=== PATIENT | male | born 1960 | race Hispanic/Latino ===

== ENCOUNTER 2017-11-15 11:36 | Inpatient (IN) | payer MEDICARE ==
[2017-11-15] MEDS ORDERED: SODIUM CHLORIDE FLUSH SYRINGE 10 ML IV PRN (11:54)
[2017-11-15] MEDS ORDERED: REQUIP PO PRN (13:32)
--- NOTE | 2017-11-15 13:32 | History and Physical Report ---
History of Present Illness Date of admission: 11/15/17 12:19 Chief complaint: I dont feel good, and I want to get off this stuff History of present illness: 57 YO Male with Nicotine Dependence, Chronic Lumbar Pain admitted directly to [facility]. Pt states that he is a chronic user of narcotics that were originally prescribed to him for back pain, as well as Benzodiazepines. Pt has experienced nausea, multiple episodes of vomiting, insomina, abdominal cramping, feeling agitated, restless, generalized body aches, muscle stiffness, and inability to concentrate over the past 3 days with worsening symptoms over the same time frame. Pt seen and evaluated upon arrival and found to have symptoms consistent with Benzodiazepine Withdrawl Syndrome, as well as Opiate Withdrawl Syndrome. Pt admitted [facility] for [facility]. Past History Past Medical History: other (Back Pain) Past Surgical History: Other (Back surgery) Social history: , smoking Family history: no significant family history (reviewed) Medications and Allergies Allergies Allergy/AdvReac Type Severity Reaction Status Date / Time asparagus AdvReac Unknown Unverified 11/15/17 14:12 Home Medications Medication Instructions Recorded Confirmed Last Taken Type No Known Home Medications [No 11/16/17 11/16/17 Unknown History Reported Home Medications] Active Meds: Active Medications Sodium Chloride (Sodium Chloride Flush Syringe 10 Ml) 10 ml IV BID COSMO Sodium Chloride (Sodium Chloride Flush Syringe 10 Ml) 10 ml IV PRN PRN PRN Reason: LINE FLUSH Review of Systems Constitutional: no weight loss, no weight gain, no fever, no chills Ears, nose, mouth and throat: no ear pain, no ear discharge, no tinnitis, no decreased hearing, no nose pain, no nasal congestion Cardiovascular: no chest pain, no orthopnea, no palpitations, no rapid/ irregular heart beat, no edema, no syncope Respiratory: no cough, no cough with sputum, no excessive sputum, no hemoptysis , no shortness of breath Gastrointestinal: nausea, vomiting, no constipation, no change in bowel habits, no hematemesis, no BRBPR, no melena, no hematochezia, no loss of appetite, no early satiety Genitourinary Male: no hematuria, no flank pain, no discharge, no urinary frequency, no urinary hesitancy, no nocturia, no incontinence Rectal: no pain, no incontinence, no bleeding, no itching, no hemorrhoids, no discharge Musculoskeletal: no neck pain, no shooting arm pain, no arm numbness/tingling, no low back pain, no shooting leg pain, no leg numbness/tingling Integumentary: no rash, no pruritis, no redness, no sores, no wounds Neurological: no transient paralysis, no paralysis, no weakness, no parathesias , no numbness, no tingling, no seizures, no syncope Psychiatric: anxiety, change in sleep habits, insomnia, change in appetite, depression, hopelessness, difficulties concentrating, irritability, no memory loss, no suicidal ideation, no disorientation, no hallucinations, no paranoia Endocrine: no cold intolerance, no heat intolerance, no polyphagia, no excessive thirst, no polydipsia, no polyuria, no nocturia, no excessive sweating Hematologic/Lymphatic: no easy bruising, no easy bleeding, no lymphadenopathy, no lymphedema Allergic/Immunologic: no urticaria, no allergic rhinitis, no persistent infections, no anaphylaxis, no angioedema Exam - Constitutional Vitals: Temp Pulse Resp BP Pulse Ox 98.3 F 64 18 123/57 99 11/15/17 12:47 11/15/17 12:47 11/15/17 12:47 11/15/17 12:47 11/15/17 12:47 General appearance: Present: mild distress, cachectic, disheveled - EENT Eyes: Present: miosis ENT: hearing intact, clear oral mucosa - Neck Neck: Present: supple, normal ROM - Respiratory Respiratory effort: normal Respiratory: bilateral: CTA - Cardiovascular Heart Sounds: Present: S1 & S2. Absent: rub, click - Extremities Extremities: pulses symmetrical, No edema Peripheral Pulses: within normal limits - Abdominal General gastrointestinal: Present: soft, non-tender, non-distended, normal bowel sounds Male genitourinary: Present: normal - Integumentary Integumentary: Present: clear, warm, dry - Musculoskeletal Musculoskeletal: gait normal, strength equal bilaterally - Psychiatric Psychiatric: appropriate mood/affect, intact judgment & insight - Neurologic Neurologic: CNII-XII intact, moves all extremities Results - Labs CBC & Chem 7: 11/15/17 18:01 11/15/17 18:01 Assessment and Plan - Patient Problems (1) Benzodiazepine withdrawal Current Visit: Yes Status: Acute Plan to address problem: Benzo Withdrawl Protocol: Librium taper, IVF resuscitation, therapy, anti emetic therapy, diet as tolerated, supportive care. (2) Opiate withdrawal Current Visit: Yes Status: Acute Plan to address problem: Opiate Withdrawl Protocol: IVF resuscitation, librium taper, anti emetic therapy , CBC,CMP, diet as tolerated, supportive care. (3) Nicotine dependence unspecified, with withdrawal Current Visit: Yes Status: Acute Qualifiers: Nicotine product type: cigarettes Qualified Code(s): F17.213 - Nicotine dependence, cigarettes, with withdrawal Plan to address problem: Smoking Cessation counseling, supportive care. (4) DVT prophylaxis Current Visit: Yes Status: Acute Plan to address problem: SCD to BLE while in bed.
[2017-11-15] MEDS ORDERED: ATIVAN IV ONE (13:50)
[2017-11-15] MEDS: LIBRIUM PO SCH ×2 (17:03→23:16)
[2017-11-15 17:47] LABS: Bilirubin,Urine NEG (Negative); Blood,Urine NEG (Negative); Color,Urine Yellow (Yellow); Protein,Urine <15 mg/dL mg/dL (Negative); RBC,Urine < 1.0 /HPF (0.0-6.0); Urobilinogen,Urine < 2.0 mg/dL (<2.0)
[2017-11-15 18:20] LABS: Hematocrit 38.4 % (35.5-45.6); Hemoglobin 13.2 gm/dl (11.8-15.2); Mean Corpuscular HGB Conc 34 % (32-34); Mean Corpuscular Hemoglobin 31 pg (28-32); Mean Corpuscular Volume 90 fl (84-94); Platelet Count 233 K/mm3 (140-440); Red Blood Count 4.27 M/mm3 (3.65-5.03); Red Cell Distribution Width 13.8 % (13.2-15.2)
[2017-11-15 18:39] LABS: WBC,Urine < 1.0 /HPF (0.0-6.0)
[2017-11-15 18:43] LABS: Alanine Aminotransferase 6 units/L (7-56); BUN/Creatinine Ratio 10; Blood Urea Nitrogen 7 mg/dL (9-20); Calcium 8.7 mg/dL (8.4-10.2); Hemolysis Index 19
[2017-11-15] MEDS: HABITROL TD SCH (23:15)
[2017-11-15] MEDS: SODIUM CHLORIDE FLUSH SYRINGE 10 ML IV SCH (23:16)
[2017-11-15] MEDS: NACL 0.9% 1000 ML 1,000 ML IV SCH (23:16)
[2017-11-15] MEDS: DESYREL PO SCH (23:16)
[2017-11-16] MEDS: LIBRIUM PO SCH ×2 (06:44→12:35)
[2017-11-16] MEDS: NACL 0.9% 1000 ML 1,000 ML IV SCH ×2 (06:44→14:22)
[2017-11-16] MEDS: THERAGRAN Tab PO SCH (09:36)
[2017-11-16] MEDS: VITAMIN B-1 PO SCH (09:36)
[2017-11-16] MEDS: FOLVITE PO SCH (09:36)
[2017-11-16] MEDS: HABITROL TD SCH (09:37)
[2017-11-16] MEDS: SODIUM CHLORIDE FLUSH SYRINGE 10 ML IV SCH ×2 (09:37→22:49)
[2017-11-16] MEDS: SUBOXONE 2 MG-0.5 MG SL SCH ×2 (14:21→22:48)
--- NOTE | 2017-11-16 18:30 | Progress Note ---
Assessment and Plan Assessment and plan: 57 YO Male with Nicotine Dependence, Chronic Lumbar Pain admitted directly to [facility]. Pt states that he is a chronic user of narcotics that were originally prescribed to him for back pain, as well as Benzodiazepines. Pt has experienced nausea, multiple episodes of vomiting, insomina, abdominal cramping, feeling agitated, restless, generalized body aches, muscle stiffness, and inability to concentrate over the past 3 days with worsening symptoms over the same time frame. Pt seen and evaluated upon arrival and found to have symptoms consistent with Benzodiazepine Withdrawl Syndrome, as well as Opiate Withdrawl Syndrome. Pt admitted to [facility] for medical stabilization. (1) Benzodiazepine withdrawal Current Visit: Yes Status: Acute Plan to address problem: Benzo Withdrawl Protocol: Librium taper, IVF resuscitation, therapy, anti emetic therapy, diet as tolerated, supportive care. Patient less irritable but still with restlessness and difficulty concentrating. (2) Opiate withdrawal Current Visit: Yes Status: Acute Plan to address problem: Opiate Withdrawal Protocol: IVF resuscitation, librium taper, anti emetic therapy, CBC,CMP, diet as tolerated, supportive care. Started on subuxone (3) Nicotine dependence unspecified, with withdrawal Current Visit: Yes Status: Acute Qualifiers: Nicotine product type: cigarettes Qualified Code(s): F17.213 - Nicotine dependence, cigarettes, with withdrawal Plan to address problem: Smoking Cessation counseling, supportive care. (4) DVT prophylaxis Current Visit: Yes Status: Acute Plan to address problem: SCD to BLE while in bed. History Interval history: Patient seen and examined this morning still lethargic, restless, some diaphoresis and fidgety consistent with withdrawal symptoms. Hospitalist Physical - Physical exam Narrative exam: VITAL SIGNS: Reviewed. GENERAL: The patient appeared well nourished and normally developed. Uncomfortable appearing and restless. Vital signs as documented. HEAD: No signs of head trauma. EYES: Pupils are equal. Extraocular motions intact. EARS: Hearing grossly intact. MOUTH: Oropharynx is normal. NECK: No adenopathy, no JVD. CHEST: Chest with clear breath sounds bilaterally. No wheezes, rales, or rhonchi. CARDIAC: Regular rate and rhythm. S1 and S2, without murmurs, gallops, or rubs. VASCULAR: No Edema. Peripheral pulses normal and equal in all extremities. ABDOMEN: Soft, without detectable tenderness. No sign of distention. No rebound or guarding, and no masses palpated. Bowel Sounds normal. MUSCULOSKELETAL: Good range of motion of all major joints. Extremities without clubbing, cyanosis or edema. NEUROLOGIC EXAM: Alert and oriented x 3. No focal sensory or strength deficits. Irritable. Speech normal. Follows commands. PSYCHIATRIC: Mood normal. SKIN: No rash or lesions. - Constitutional Vitals: Temp Pulse Resp BP Pulse Ox 98.6 F 89 18 120/55 99 11/16/17 16:06 11/16/17 16:06 11/16/17 16:06 11/16/17 16:06 11/16/17 16:06 General appearance: Present: mild distress, cachectic, disheveled Results - Labs CBC & Chem 7: 11/15/17 18:01 11/15/17 18:01 Labs: Laboratory Last Values WBC 9.6 K/mm3 (4.5-11.0) 11/15/17 18: RBC 4.27 M/mm3 (3.65-5.03) 11/15/17 18: Hgb 13.2 gm/dl (11.8-15.2) 11/15/17 18: Hct 38.4 % (35.5-45.6) 11/15/17 18: MCV 90 fl (84-94) 11/15/17 18: MCH 31 pg (28-32) 11/15/17 18:01 MCHC 34 % (32-34) 11/15/17 18:01 RDW 13.8 % (13.2-15.2) 11/15/17 18: Plt Count 233 K/mm3 (140-440) 11/15/17 18: Sodium 138 mmol/L (137-145) 11/15/17 18:01 Potassium 3.8 mmol/L (3.6-5.0) 11/15/17 18:01 Chloride 98.6 mmol/L (98-107) 11/15/17 18: Carbon Dioxide 26 mmol/L (22-30) 11/15/17 18:01 Anion Gap 17 mmol/L 11/15/17 18:01 BUN 7 mg/dL (9-20) L 11/15/17 18:01 Creatinine 0.7 mg/dL (0.8-1.5) L 11/15/17 18:01 Estimated GFR > 60 ml/min 11/15/17 18:01 BUN/Creatinine Ratio 10 % 11/15/17 18:01 Glucose 88 mg/dL (75-100) 11/15/17 18:01 Calcium 8.7 mg/dL (8.4-10.2) 11/15/17 18:01 Total Bilirubin 0.20 mg/dL (0.1-1.2) 11/15/17 18:01 AST 11 units/L (5-40) 11/15/17 18:01 ALT 6 units/L (7-56) L 11/15/17 18:01 Alkaline Phosphatase 59 units/L (35-129) 11/15/17 18:01 Total Protein 6.5 g/dL (6.3-8.2) 11/15/17 18:01 Albumin 4.0 g/dL (3.9-5) 11/15/17 18:01 Albumin/Globulin Ratio 1.6 % 11/15/17 18:01 Urine Color Yellow (Yellow) 11/15/17 13:33 Urine Turbidity Clear (Clear) 11/15/17 13:33 Urine pH 5.0 (5.0-7.0) 11/15/17 13:33 Ur Specific [place] 1.004 (1.003-1.030) 11/15/17 13:33 Urine Protein <15 mg/dl mg/dL (Negative) 11/15/17 13:33 Urine Glucose (UA) Neg mg/dL (Negative) 11/15/17 13:33 Urine Ketones Neg mg/dL (Negative) 11/15/17 13:33 Urine Blood Neg (Negative) 11/15/17 13:33 Urine Nitrite Neg (Negative) 11/15/17 13:33 Urine Bilirubin Neg (Negative) 11/15/17 13:33 Urine Urobilinogen < 2.0 mg/dL (<2.0) 11/15/17 13:33 Ur Leukocyte Esterase Neg (Negative) 11/15/17 13:33 Urine WBC (Auto) < 1.0 /HPF (0.0-6.0) 11/15/17 13:33 Urine RBC (Auto) < 1.0 /HPF (0.0-6.0) 11/15/17 13:33 Plasma/Serum Alcohol < 0.01 % (0-0.07) 11/15/17 18:01
[2017-11-16] MEDS: DESYREL PO SCH (22:49)
[2017-11-17] MEDS: NACL 0.9% 1000 ML 1,000 ML IV SCH ×3 (02:47→19:57)
[2017-11-17] MEDS: ROBAXIN PO PRN (02:50)
[2017-11-17] MEDS: ZOFRAN IV PRN ×2 (02:51→21:30)
[2017-11-17] MEDS: SUBOXONE 2 MG-0.5 MG SL SCH ×4 (06:33→21:31)
[2017-11-17] MEDS: FOLVITE PO SCH (10:20)
[2017-11-17] MEDS: HABITROL TD SCH (10:20)
[2017-11-17] MEDS: VITAMIN B-1 PO SCH (10:20)
[2017-11-17] MEDS: SODIUM CHLORIDE FLUSH SYRINGE 10 ML IV SCH ×2 (10:21→21:31)
[2017-11-17] MEDS: THERAGRAN Tab PO SCH (10:21)
--- NOTE | 2017-11-17 15:00 | Progress Note ---
Assessment and Plan Assessment and plan: 57 YO Male with Nicotine Dependence, Chronic Lumbar Pain admitted directly to [facility]. Pt states that he is a chronic user of narcotics that were originally prescribed to him for back pain, as well as Benzodiazepines. Pt has experienced nausea, multiple episodes of vomiting, insomina, abdominal cramping, feeling agitated, restless, generalized body aches, muscle stiffness, and inability to concentrate over the past 3 days with worsening symptoms over the same time frame. Pt seen and evaluated upon arrival and found to have symptoms consistent with Benzodiazepine Withdrawl Syndrome, as well as Opiate Withdrawl Syndrome. Pt admitted to [facility] for medical stabilization. (1) Benzodiazepine withdrawal Current Visit: Yes Status: Acute Plan to address problem: Benzo Withdrawl Protocol: Librium taper, IVF resuscitation, therapy, anti emetic therapy, diet as tolerated, supportive care. Patient less irritable but still with restlessness and difficulty concentrating. (2) Opiate withdrawal Current Visit: Yes Status: Acute Plan to address problem: Opiate Withdrawal Protocol: IVF resuscitation, librium taper, anti emetic therapy, CBC,CMP, diet as tolerated, supportive care. Started on subuxone (3) Nicotine dependence unspecified, with withdrawal Current Visit: Yes Status: Acute Qualifiers: Nicotine product type: cigarettes Qualified Code(s): F17.213 - Nicotine dependence, cigarettes, with withdrawal Plan to address problem: Smoking Cessation counseling, supportive care. (4) DVT prophylaxis Current Visit: Yes Status: Acute Plan to address problem: SCD to BLE while in bed. History Interval history: Patient seen and examined this morning still lethargic, restless, some diaphoresis and fidgety consistent with withdrawal symptoms. no other adverse event reported from nursing staff Hospitalist Physical - Physical exam Narrative exam: VITAL SIGNS: Reviewed. GENERAL: The patient appeared well nourished and normally developed. Uncomfortable appearing and restless. Vital signs as documented. HEAD: No signs of head trauma. EYES: Pupils are equal. Extraocular motions intact. EARS: Hearing grossly intact. MOUTH: Oropharynx is normal. NECK: No adenopathy, no JVD. CHEST: Chest with clear breath sounds bilaterally. No wheezes, rales, or rhonchi. CARDIAC: Regular rate and rhythm. S1 and S2, without murmurs, gallops, or rubs. VASCULAR: No Edema. Peripheral pulses normal and equal in all extremities. ABDOMEN: Soft, without detectable tenderness. No sign of distention. No rebound or guarding, and no masses palpated. Bowel Sounds normal. MUSCULOSKELETAL: Good range of motion of all major joints. Extremities without clubbing, cyanosis or edema. NEUROLOGIC EXAM: Alert and oriented x 3. No focal sensory or strength deficits. Irritable. Speech normal. Follows commands. PSYCHIATRIC: Mood normal. SKIN: No rash or lesions. - Constitutional Vitals: Temp Pulse Resp BP Pulse Ox 98.5 F 61 18 126/73 98 11/17/17 12:32 11/17/17 12:32 11/17/17 12:32 11/17/17 12:32 11/17/17 12:32 General appearance: Present: mild distress, cachectic, disheveled Results - Labs CBC & Chem 7: 11/15/17 18:01 11/15/17 18:01 Labs: Laboratory Last Values WBC 9.6 K/mm3 (4.5-11.0) 11/15/17 18: RBC 4.27 M/mm3 (3.65-5.03) 11/15/17 18: Hgb 13.2 gm/dl (11.8-15.2) 11/15/17 18: Hct 38.4 % (35.5-45.6) 11/15/17 18: MCV 90 fl (84-94) 11/15/17 18: MCH 31 pg (28-32) 11/15/17 18: MCHC 34 % (32-34) 11/15/17 18: RDW 13.8 % (13.2-15.2) 11/15/17 18: Plt Count 233 K/mm3 (140-440) 11/15/17 18: Sodium 138 mmol/L (137-145) 11/15/17 18: Potassium 3.8 mmol/L (3.6-5.0) 11/15/17 18: Chloride 98.6 mmol/L (98-107) 11/15/17 18: Carbon Dioxide 26 mmol/L (22-30) 11/15/17 18: Anion Gap 17 mmol/L 11/15/17 18: BUN 7 mg/dL (9-20) L 11/15/17 18: Creatinine 0.7 mg/dL (0.8-1.5) L 11/15/17 18:01 Estimated GFR > 60 ml/min 11/15/17 18:01 BUN/Creatinine Ratio 10 % 11/15/17 18:01 Glucose 88 mg/dL (75-100) 11/15/17 18:01 Calcium 8.7 mg/dL (8.4-10.2) 11/15/17 18:01 Total Bilirubin 0.20 mg/dL (0.1-1.2) 11/15/17 18:01 AST 11 units/L (5-40) 11/15/17 18:01 ALT 6 units/L (7-56) L 11/15/17 18:01 Alkaline Phosphatase 59 units/L (35-129) 11/15/17 18:01 Total Protein 6.5 g/dL (6.3-8.2) 11/15/17 18:01 Albumin 4.0 g/dL (3.9-5) 11/15/17 18:01 Albumin/Globulin Ratio 1.6 % 11/15/17 18:01 Urine Color Yellow (Yellow) 11/15/17 13:33 Urine Turbidity Clear (Clear) 11/15/17 13:33 Urine pH 5.0 (5.0-7.0) 11/15/17 13:33 Ur Specific [place] 1.004 (1.003-1.030) 11/15/17 13:33 Urine Protein <15 mg/dl mg/dL (Negative) 11/15/17 13:33 Urine Glucose (UA) Neg mg/dL (Negative) 11/15/17 13:33 Urine Ketones Neg mg/dL (Negative) 11/15/17 13:33 Urine Blood Neg (Negative) 11/15/17 13:33 Urine Nitrite Neg (Negative) 11/15/17 13:33 Urine Bilirubin Neg (Negative) 11/15/17 13:33 Urine Urobilinogen < 2.0 mg/dL (<2.0) 11/15/17 13:33 Ur Leukocyte Esterase Neg (Negative) 11/15/17 13:33 Urine WBC (Auto) < 1.0 /HPF (0.0-6.0) 11/15/17 13:33 Urine RBC (Auto) < 1.0 /HPF (0.0-6.0) 11/15/17 13:33 Plasma/Serum Alcohol < 0.01 % (0-0.07) 11/15/17 18:01
[2017-11-17] MEDS: DESYREL PO SCH (21:30)
[2017-11-18] MEDS: NACL 0.9% 1000 ML 1,000 ML IV SCH (03:37)
[2017-11-18] MEDS: VITAMIN B-1 PO SCH (09:41)
[2017-11-18] MEDS: FOLVITE PO SCH (09:42)
[2017-11-18] MEDS: SODIUM CHLORIDE FLUSH SYRINGE 10 ML IV SCH ×2 (09:42→21:57)
[2017-11-18] MEDS: HABITROL TD SCH (09:42)
[2017-11-18] MEDS: THERAGRAN Tab PO SCH (09:42)
--- NOTE | 2017-11-18 09:46 | Progress Note ---
Assessment and Plan Assessment and plan: 57 YO Male with Nicotine Dependence, Chronic Lumbar Pain admitted directly to [facility]. Pt states that he is a chronic user of narcotics that were originally prescribed to him for back pain, as well as Benzodiazepines. Pt has experienced nausea, multiple episodes of vomiting, insomina, abdominal cramping, feeling agitated, restless, generalized body aches, muscle stiffness, and inability to concentrate over the past 3 days with worsening symptoms over the same time frame. Pt seen and evaluated upon arrival and found to have symptoms consistent with Benzodiazepine Withdrawl Syndrome, as well as Opiate Withdrawl Syndrome. Pt admitted to [facility] for medical stabilization. (1) Benzodiazepine withdrawal Current Visit: Yes Status: Acute Plan to address problem: Benzo Withdrawl Protocol: Librium taper, IVF resuscitation, therapy, anti emetic therapy, diet as tolerated, supportive care. Patient less irritable but still with restlessness and difficulty concentrating. Change to Banana bag IV Patient will benefit from inpatient placement for prolonged detox (2) Opiate withdrawal Current Visit: Yes Status: Acute Plan to address problem: Opiate Withdrawal Protocol: IVF resuscitation, librium taper, anti emetic therapy, CBC,CMP, diet as tolerated, supportive care. Started on subuxone (3) Nicotine dependence unspecified, with withdrawal Current Visit: Yes Status: Acute Qualifiers: Nicotine product type: cigarettes Qualified Code(s): F17.213 - Nicotine dependence, cigarettes, with withdrawal Plan to address problem: Smoking Cessation counseling, supportive care. (4) DVT prophylaxis Current Visit: Yes Status: Acute Plan to address problem: SCD to BLE while in bed. History Interval history: Patient seen and examined this morning still lethargic, restless, some diaphoresis and fidgety consistent with withdrawal symptoms., Not tolerating PO Secondary to dysgeusia. no other adverse event reported from nursing staff Hospitalist Physical - Physical exam Narrative exam: VITAL SIGNS: Reviewed. GENERAL: The patient appeared well nourished and normally developed. Uncomfortable appearing and restless. Vital signs as documented. HEAD: No signs of head trauma. EYES: Pupils are equal. Extraocular motions intact. EARS: Hearing grossly intact. MOUTH: Oropharynx is normal. NECK: No adenopathy, no JVD. CHEST: Chest with clear breath sounds bilaterally. No wheezes, rales, or rhonchi. CARDIAC: Regular rate and rhythm. S1 and S2, without murmurs, gallops, or rubs. VASCULAR: No Edema. Peripheral pulses normal and equal in all extremities. ABDOMEN: Soft, without detectable tenderness. No sign of distention. No rebound or guarding, and no masses palpated. Bowel Sounds normal. MUSCULOSKELETAL: Good range of motion of all major joints. Extremities without clubbing, cyanosis or edema. NEUROLOGIC EXAM: Alert and oriented x 3. No focal sensory or strength deficits. Irritable. Speech normal. Follows commands. PSYCHIATRIC: Mood normal. SKIN: No rash or lesions. - Constitutional Vitals: Temp Pulse Resp BP Pulse Ox 98.6 F 56 L 18 138/76 100 11/18/17 08:10 11/18/17 08:44 11/18/17 08:44 11/18/17 08:10 11/18/17 08:44 General appearance: Present: mild distress, cachectic, disheveled Results - Labs CBC & Chem 7: 11/15/17 18:01 11/15/17 18:01 Labs: Laboratory Last Values WBC 9.6 K/mm3 (4.5-11.0) 11/15/17 18: RBC 4.27 M/mm3 (3.65-5.03) 11/15/17 18: Hgb 13.2 gm/dl (11.8-15.2) 11/15/17 18: Hct 38.4 % (35.5-45.6) 11/15/17 18: MCV 90 fl (84-94) 11/15/17 18: MCH 31 pg (28-32) 11/15/17 18: MCHC 34 % (32-34) 11/15/17 18: RDW 13.8 % (13.2-15.2) 11/15/17 18:01 Plt Count 233 K/mm3 (140-440) 11/15/17 18:01 Sodium 138 mmol/L (137-145) 11/15/17 18:01 Potassium 3.8 mmol/L (3.6-5.0) 11/15/17 18:01 Chloride 98.6 mmol/L (98-107) 11/15/17 18: Carbon Dioxide 26 mmol/L (22-30) 11/15/17 18: Anion Gap 17 mmol/L 11/15/17 18:01 BUN 7 mg/dL (9-20) L 11/15/17 18:01 Creatinine 0.7 mg/dL (0.8-1.5) L 11/15/17 18:01 Estimated GFR > 60 ml/min 11/15/17 18:01 BUN/Creatinine Ratio 10 % 11/15/17 18:01 Glucose 88 mg/dL (75-100) 11/15/17 18:01 Calcium 8.7 mg/dL (8.4-10.2) 11/15/17 18: Total Bilirubin 0.20 mg/dL (0.1-1.2) 11/15/17 18:01 AST 11 units/L (5-40) 11/15/17 18:01 ALT 6 units/L (7-56) L 11/15/17 18:01 Alkaline Phosphatase 59 units/L (35-129) 11/15/17 18:01 Total Protein 6.5 g/dL (6.3-8.2) 11/15/17 18:01 Albumin 4.0 g/dL (3.9-5) 11/15/17 18:01 Albumin/Globulin Ratio 1.6 % 11/15/17 18:01 Urine Color Yellow (Yellow) 11/15/17 13:33 Urine Turbidity Clear (Clear) 11/15/17 13:33 Urine pH 5.0 (5.0-7.0) 11/15/17 13:33 Ur Specific [place] 1.004 (1.003-1.030) 11/15/17 13:33 Urine Protein <15 mg/dl mg/dL (Negative) 11/15/17 13:33 Urine Glucose (UA) Neg mg/dL (Negative) 11/15/17 13:33 Urine Ketones Neg mg/dL (Negative) 11/15/17 13:33 Urine Blood Neg (Negative) 11/15/17 13:33 Urine Nitrite Neg (Negative) 11/15/17 13:33 Urine Bilirubin Neg (Negative) 11/15/17 13:33 Urine Urobilinogen < 2.0 mg/dL (<2.0) 11/15/17 13:33 Ur Leukocyte Esterase Neg (Negative) 11/15/17 13:33 Urine WBC (Auto) < 1.0 /HPF (0.0-6.0) 11/15/17 13:33 Urine RBC (Auto) < 1.0 /HPF (0.0-6.0) 11/15/17 13:33 Plasma/Serum Alcohol < 0.01 % (0-0.07) 11/15/17 18:01
[2017-11-18] MEDS: ZOFRAN IV PRN ×2 (10:01→20:29)
[2017-11-18] MEDS: ROBAXIN PO PRN ×2 (10:01→21:56)
[2017-11-18] MEDS: 1: FOLVITE 1 MG, INFUVITE 10 ML, VITAMIN B-1 100 MG in NACL 0.9% 1000 ML 988.8 ML 2: NA IV SCH ×2 (10:53→18:21)
[2017-11-18] MEDS: SUBOXONE 2 MG-0.5 MG SL SCH ×2 (12:31→21:56)
[2017-11-18] MEDS: DESYREL PO SCH (21:56)
[2017-11-19] MEDS: NACL 0.9% 1000 ML 1,000 ML IV SCH (02:28)
[2017-11-19] MEDS: 1: FOLVITE 1 MG, INFUVITE 10 ML, VITAMIN B-1 100 MG in NACL 0.9% 1000 ML 988.8 ML 2: NA IV SCH ×2 (02:31→10:50)
[2017-11-19] MEDS: HABITROL TD SCH (10:10)
[2017-11-19] MEDS: SODIUM CHLORIDE FLUSH SYRINGE 10 ML IV SCH (10:11)
--- NOTE | 2017-11-19 10:51 | Discharge Summary ---
Providers - Providers Date of Admission: 11/15/17 12:19 Date of discharge: 11/19/17 Attending physician: MAO BUTLER MD Primary care physician: LAURA YADAV MD Hospitalization Hospital course: 57 YO Male with Nicotine Dependence, Chronic Lumbar Pain secondary to multiple lumbar surgery including placement of rods, also has lost significant weight in the last year and feels tugging on the hardware on his back. He has been on chronic Opioid and benzo use at very high doses, upward of 90mg and above on the opioids daily, admitted directly to [facility]. Pt states that he is a chronic user of narcotics that were originally prescribed to him for back pain, as well as Benzodiazepines. Pt has experienced nausea, multiple episodes of vomiting, insomina, abdominal cramping, feeling agitated, restless, generalized body aches , muscle stiffness, and inability to concentrate over the past 3 days with worsening symptoms over the same time frame. Pt seen and evaluated upon arrival and found to have symptoms consistent with Benzodiazepine Withdrawl Syndrome, as well as Opiate Withdrawl Syndrome. Pt admitted to [facility] for medical stabilization. (1) Benzodiazepine withdrawal Current Visit: Yes Status: Acute Plan to address problem: Benzo Withdrawl Protocol: Librium taper, IVF resuscitation, therapy, anti emetic therapy, diet as tolerated, supportive care. Patient less irritable but still with restlessness and difficulty concentrating. Change to Banana bag IV Patient will benefit from inpatient placement for prolonged detox (2) Opiate withdrawal Current Visit: Yes Status: Acute Plan to address problem: Opiate Withdrawal Protocol: IVF resuscitation, librium taper, anti emetic therapy, CBC,CMP, diet as tolerated, supportive care. Started on subuxone (3) Nicotine dependence unspecified, with withdrawal Current Visit: Yes Status: Acute Qualifiers: Nicotine product type: cigarettes Qualified Code(s): F17.213 - Nicotine dependence, cigarettes, with withdrawal Plan to address problem: Smoking Cessation counseling, supportive care. Core Measure Documentation - Palliative Care Palliative Care/ Comfort Measures: Not Applicable Exam - Physical Exam Narrative exam: VITAL SIGNS: Reviewed. GENERAL: The patient appeared well developed but cachetic. Uncomfortable appearing and restless. Vital signs as documented. HEAD: No signs of head trauma. EYES: Pupils are equal. Extraocular motions intact. EARS: Hearing grossly intact. MOUTH: Oropharynx is normal. NECK: No adenopathy, no JVD. CHEST: Chest with clear breath sounds bilaterally. No wheezes, rales, or rhonchi. CARDIAC: Regular rate and rhythm. S1 and S2, without murmurs, gallops, or rubs. VASCULAR: No Edema. Peripheral pulses normal and equal in all extremities. ABDOMEN: Soft, without detectable tenderness. No sign of distention. No rebound or guarding, and no masses palpated. Bowel Sounds normal. MUSCULOSKELETAL: LIMITED BACK MOTION DUE TO HARDWARE AND SPINAL PROCESS, PROTROSION. Extremities without clubbing, cyanosis or edema. NEUROLOGIC EXAM: Alert and oriented x 3. No focal sensory or strength deficits. Irritable. Speech normal. Follows commands. PSYCHIATRIC: Mood normal. SKIN: No rash or lesions. - Constitutional Vitals: Temp Pulse Resp BP Pulse Ox 98.0 F 59 L 18 143/74 96 11/19/17 08:26 11/19/17 08:26 11/19/17 08:26 11/19/17 08:26 11/19/17 08:26 Plan Activity: advance as tolerated, fall precautions Diet: regular Special Instructions: record daily weights, record daily BP diary, follow up in rehab Follow up with: LAURA YADAV MD [Primary Care Provider] - 7 Days Prescriptions: Folic Acid 0.4 mg PO QDAY #30 tablet Methocarbamol [Robaxin TAB] 750 mg PO Q6H PRN #14 tablet PRN Reason: Muscle Ache Multivitamin [Multiple Vitamins] 1 each PO DAILY #30 tablet Nicotine [Habitrol] 7 mg TD QDAY #30 patch rOPINIRole [Requip] 0.5 mg PO Q12H PRN #14 tablet PRN Reason: Restless Legs Thiamine [Vitamin B-1] 100 mg PO QDAY #30 tablet
[2017-11-19 12:22] VITALS: BP 156/76
== END 2017-11-19 12:10 | disposition home or self-care (01) | DRG 897 ==
LOC: 2B-ACE 11:36 → UNDOADMIN 11:36 → MSU 12:19
PROVIDERS: ADMIT Internal Medicine; ATTEND Internal Medicine
DX: F11.23 Opioid dependence with withdrawal (principal); M54.5 Low back pain; F13.239 Sedative, hypnotic or anxiolytic dependence with withdrawal, unspecified; F17.213 Nicotine dependence, cigarettes, with withdrawal; Y92.89 Other specified places as the place of occurrence of the external cause; Z71.6 Tobacco abuse counseling
CPT/HCPCS: 36415; 80053; 80320; 81001; 85027; 93005; 93010; G0480; J2405; J3411; J7030